=== PATIENT | female | born 1970 | race Caucasian/White ===

== ENCOUNTER 2020-08-27 09:46 | Inpatient (IN) | payer OTHER ==
--- NOTE | 2020-08-27 09:49 | PDOC ---
History of Present Illness - General Chief Complaint: Pain Stated Complaint: ABD PAIN Time Seen by Provider: 08/27/20 09:48 History Source: Patient Exam Limitations: No Limitations - History of Present Illness Initial Comments: 08/27/20 09:49 HPI 50 YOF with no significant medical history presenting with progressively worsening RLQ abdominal pain since last night. Pt states that starting last night she had diffuse abdominal pain, that has since migrated to RLQ today, described as crampy and achy, rated 6/10, no exacerbating factors. She admits to improvement with positional change, +decreased appetite. normal BM, no bloody stools. she took laxative, made 3 normal bowel movements. +passing gas. she also took one pill of Tagamet with minimal improvement. she also took aleve before bedtime last night, minimal relief. Denies fever, chills, chest pain, SOB, palpitation, dizziness, weakness, N, V, D,bladder and bowel problems, hematuria, urgency or frequency, dysuria, focal weakness/paresthesias, leg swelling/pain, rash. No sick contacts or travel. No new changes in medications. No suspicious food intake Allergies: None Past Medical History/PSH: none Social history: Lives with family. No tobacco, ETOH or drug use. Meds: none Review of systems Constitutional: no fevers or chills. No weakness. +decreased appetite HEENT: no headache or dizziness. No congestion. No visual/hearing disturbances. CVS: no cp or syncope. Resp: no sob. No cough. Gastrointestinal: no nausea, vomiting, diarrhea. +abdominal pain Genitourinary: no urinary sx, hematuria. no urgency or frequency or dysuria. MUSCULOSKELETAL: No joint pain and swelling. No neck or back pain. SKIN: no redness or skin changes, no discharge, no rash. No wounds. Hematologic: no easy bruising/bleeding. NEUROLOGIC: No headache, dizziness, LOC or altered mental status. No weakness, numbness or tingling. Psych: no anxiety or depression Allergic/Immunologic: no allergies All other systems reviewed and negative, or as documented in HPI. Physical exam General: awake and alert, NAD. HEENT: NCAT, PERRL, EOMI, clear conjunctiva, anicteric, moist mucus membranes, clear oropharynx, no oral lesions.. Neck: neck supple, FROM Resp: CTAB, normal and even respirations, no respiratory distress CVS: RRR, no murmurs, 2+ peripheral pulses throughout, no peripheral edema Abdomen: soft, +RLQ tenderness, +mcburney's point tenderness. no rebound, +voluntary guarding Back: nontender, normal inspection and ROM, no CVAT MSK: no edema, BHARDWAJ x4, ROM intact. No clubbing or cyanosis. normal bulk and tone. Extremities: no calf tenderness Neuro: alert, oriented appropriately; no focal neurologic deficits Psych: Calm and cooperative Skin: warm and well perfused, cap refill <2 sec, normal color, no rash or skin discoloration. 08/27/20 10:01 Past History - Medical History Allergies/Adverse Reactions: Allergies Allergy/AdvReac Type Severity Reaction Status Date / Time No Known Allergies Allergy Verified 08/27/20 09:47 ED Treatment Course - LABORATORY CBC & Chemistry Diagram: 08/27/20 10:20 08/27/20 10:20 Medical Decision Making - Medical Decision Making 08/27/20 10:05 DDx abdominal pain: Renal colic, biliary colic, metabolic/electrolyte derangements. GERD, PUD, esophageal spasm, pancreatitis, hepatitis, constipation, colitis, gastroenteritis, cholecystitis, UTI, pyelonephritis, ileus, SBO, medication side effect, hernia, appendicitis, diverticulitis, mesenteric ischemia. msk strain, mesenteric adenitis, psoas abscess. - no GIB +RLQ pain, concern for acute appy vs renal colic/obstructed stone. will do CT a/p to eval for acute abdominal pathology. no pelvic pain. post menopausal. 08/27/20 11:52 labs and lytes wnl. no wbc ct, 8K lytes are wnl, cr is 0.77, glucose 116, na 138, k 4.7, cl 104, co2 24, ca 9.6. A ST 22, alt 23, alp 49. reported on paper due to lab input issues preop labs, txs to be sent CT with acute uncomplicated appendicitis measuring up to 1.3cm IV ceftriaxone and flagyl for empiric coverage pain controlled with tylenol, now dull ache, much improved IVF hydration Dr Roy consult, to OR at [facility] for operative management. rapid covid testing pending Dr Pelayo, PMD made aware, admit to hospitalist for medical management, surgery following with Dr Roy, NPO, IVF, abx. s/o to [facility] Maya, admitting to Dr Francis pt made aware of impression and plan, agreeable 08/27/20 12:18 08/27/20 12:18 Discharge - Discharge Information Problems reviewed: Yes Clinical Impression/Diagnosis: Acute appendicitis Qualifiers: Acute appendicitis type: unspecified acute appendicitis type Qualified Code(s): K35.80 - Unspecified acute appendicitis Condition: Fair - Admission Yes - Follow up/Referral - Patient Discharge Instructions - Post Discharge Activity
[2020-08-27] MEDS ORDERED: SODIUM CHLORIDE 0.9% 500 ML INFUS.BAG IV ONE (09:59)
[2020-08-27] MEDS ORDERED: ACETAMINOPHEN 1000 MG/100 ML VIAL (NON FORMULARY) IVPB ONE (09:59)
[2020-08-27] MEDS ORDERED: ACETAMINOPHEN INJECTION 100 ML IVPB ONE (10:13)
[2020-08-27 11:13] LABS: BASO % 0.5 % (0-2.0); EOS % 0.3 % (0-4.5); HEMATOCRIT 40.7 % (32.4-45.2); HEMOGLOBIN 13.6 GM/dl (10.7-15.3); LYMPH % 14.1 % (8-40); MCHC 33.5 g/dl (32.0-36.0); MEAN CELL VOLUME 89.7 fl (80-96); MEAN PLT VOLUME 8.1 fl (7.5-11.1); MONO % 6.7 % (3.8-10.2); NEUT % 78.4 % (42.8-82.8); PLATELET COUNT 231 K/MM3 (134-434); RBC 4.54 M/mm3 (3.60-5.2); RDW 11.7 % (11.6-15.6); WHITE BLOOD COUNT 9.3 K/mm3 (4.0-10.8)
[2020-08-27] MEDS ORDERED: CEFTRIAXONE 1,000 MG in DEXTROSE 5%-WATER - 50 ML IVPB ONE (11:33)
[2020-08-27 12:00] LABS: ACTIVATED PTT 27.4 SECONDS (25.2-36.5); INR 1.04 (0.82-1.09); PROTHROMBIN TIME (PATIENT) 11.6 SEC (10.2-13.0)
--- NOTE | 2020-08-27 12:11 | HP ---
CHIEF COMPLAINT: Abdominal pain PCP: Dr. Pelayo HISTORY OF PRESENT ILLNESS: 50 year-old female with a PMH significant for hypothyroidism, presented to the ED for evaluation of abdominal pain. Last night patient had diffuse abdominal pain which then migrated to the RLQ today. The pain is described as crampy and achy, 6/10. Reports decreased appetite but no nausea or vomiting. Took OTC remedies (laxative, Tagamet, Aleve) with little to no relief. Denies fever, sweats, chills. 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[place], owns insurance agency Smoking: no Alcohol: occasional wine Drugs: occasional marijuana Family history: reviewed and non-contributory Allergies No Known Allergies Allergy (Verified 08/27/20 09:47) HOME MEDICATIONS: Home Medications Medication Instructions Recorded Levothyroxine [Synthroid -] 1 tab PO DAILY 08/27/20 Levothyroxine [Synthroid -] 75 mcg PO DAILY 08/27/20 REVIEW OF SYSTEMS CONSTITUTIONAL: Absent: fever, chills, diaphoresis, generalized weakness, malaise, loss of appetite, weight change HEENT: Absent: rhinorrhea, nasal congestion, throat pain, throat swelling, difficulty swallowing, mouth swelling, ear pain, eye pain, visual changes CARDIOVASCULAR: Absent: chest pain, syncope, palpitations, irregular heart rate, lightheadedness, peripheral edema RESPIRATORY: Absent: cough, shortness of breath, dyspnea with exertion, orthopnea, wheezing, stridor, hemoptysis GASTROINTESTINAL: +abdominal pain, decrease appetite Absent: abdominal distension, nausea, vomiting, diarrhea, constipation, melena, hematochezia GENITOURINARY: Absent: dysuria, frequency, urgency, hesitancy, hematuria, flank pain, genital pain MUSCULOSKELETAL: Absent: myalgia, arthralgia, joint swelling, back pain, neck pain SKIN: Absent: rash, itching, pallor HEMATOLOGIC/IMMUNOLOGIC: Absent: easy bleeding, easy bruising, lymphadenopathy, frequent infections ENDOCRINE: Absent: unexplained weight gain, unexplained weight loss, heat intolerance, cold intolerance NEUROLOGIC: Absent: headache, focal weakness or paresthesias, dizziness, unsteady gait, seizure, mental status changes, bladder or bowel incontinence PSYCHIATRIC: Absent: anxiety, depression, suicidal or homicidal ideation, hallucinations. PHYSICAL EXAMINATION Vital Signs - 24 hr 08/27/20 09:47 Temperature 99.3 F Pulse Rate 88 Respiratory 20 Rate Blood Pressure 140/87 O2 Sat by Pulse 97 Oximetry (%) GENERAL: Awake, alert, and fully oriented, in no acute distress. LUNGS: Breath sounds equal, clear to auscultation bilaterally. No wheezes, and no crackles. No accessory muscle use. HEART: Regular rate and rhythm, normal S1 and S2 ABDOMEN: Soft, RLQ tenderness UPPER EXTREMITIES: 2+ pulses, warm, well-perfused. No cyanosis. No clubbing. No peripheral edema. LOWER EXTREMITIES: 2+ pulses, warm, well-perfused. No calf tenderness. No peripheral edema. NEUROLOGICAL: Cranial nerves II-XII intact. Normal speech. Laboratory Results - last 24 hr 08/27/20 08/27/20 10:20 10:20 WBC 9.3 RBC 4.54 Hgb 13.6 Hct 40.7 MCV 89.7 MCH 30.0 MCHC 33.5 RDW 11.7 Plt Count 231 MPV 8.1 Absolute Neuts (auto) 7.4 Neutrophils % 78.4 Lymphocytes % 14.1 Monocytes % 6.7 Eosinophils % 0.3 Basophils % 0.5 PT with INR 11.6 INR 1.04 PTT (Actin FS) 27.4 ASSESSMENT/PLAN: 50 year-old female with a PMH significant for hypothyroidism, admitted for acute appendicitis. Acute appendicitis --plan is to OR this afternoon with Dr. Roy --seen and evaluated by airfield defence guard/PCP Dr. Pelayo, no absolute contraindications to surgery --perioperative antibiotics per surgery --IV Tylenol for pain Hypothyroidism --continue levothyroxine FEN Fluids: LR@125mL/hr Electrolytes: replete as indicated Nutrition: NPO DVT prophylaxis: SCDs Dipso: awaiting transfer to [facility] for emergent surgery with Dr. Roy. Full code. Family Medical History Family History: As Documented Visit type - Emergency Visit Emergency Visit: Yes Care time: The patient presented to the Emergency Department on the above date and was hospitalized for further evaluation of their emergent condition. - New Patient This patient is new to me today: Yes Date on this admission: 08/27/20 - Critical Care Critical Care patient: No
[2020-08-27 12:16] LABS: EPITHELIAL CELLS FEW /hpf; URIC ACID CRYSTALS 1+ /hpf (NONE SEEN)
[2020-08-27] MEDS ORDERED: LACTATED RINGERS SOLUTION 1,000 ML/1,000 ML INFUS.BAG IV SCH (12:30)
--- NOTE | 2020-08-27 12:33 | CON.CARD ---
Consult Consult Specialty:: Cardiology Referred by:: Carmelita Reason for Consultation:: preop evaluation - History of Present Illness Chief Complaint: abd pain History of Present Illness: 50 year old woman well known to me history of pancreatitis age 10, hypothyroidism on replacement (synthroid 75mcg daily), who presents with one day of abd pain starting last night, periumbilical without fever, chills, nausea or vomiting. Woke up 4 am with RLQ pain. Took laxative had bm without relief. Came to ER found with acute uncomplicated appendicitis on CT scan. - History Source History Provided By: Patient, Medical Record - Past Medical History Gastrointestinal: Yes: Pancreatitis ...LMP: 11/20/17 ...: No - Past Surgical History Additional Surgical History: lasik, achilles tendon - Smoking History Smoking history: Never smoked Have you smoked in the past 12 months: No Home Medications - Allergies Allergies/Adverse Reactions: Allergies Allergy/AdvReac Type Severity Reaction Status Date / Time No Known Allergies Allergy Verified 08/27/20 09:47 - Home Medications Home Medications: Ambulatory Orders Levothyroxine [Synthroid -] 1 tab PO DAILY 08/27/20 Review of Systems - Review of Systems Constitutional: reports: No Symptoms Eyes: reports: No Symptoms HENT: reports: No Symptoms Neck: reports: No Symptoms Cardiovascular: reports: No Symptoms Respiratory: reports: No Symptoms Gastrointestinal: reports: Abdominal Pain Genitourinary: reports: No Symptoms Breasts: reports: No Symptoms Reported Musculoskeletal: reports: No Symptoms Integumentary: reports: No Symptoms Neurological: reports: No Symptoms Vital Signs: Vital Signs Temperature 99.3 F 08/27/20 09:47 Pulse Rate 88 08/27/20 09:47 Respiratory Rate 20 08/27/20 09:47 Blood Pressure 140/87 08/27/20 09:47 O2 Sat by Pulse Oximetry (%) 97 08/27/20 09:47 Constitutional: Yes: No Distress, Calm Eyes: Yes: Conjunctiva Clear, EOM Intact HENT: Yes: Atraumatic, Normocephalic Neck: Yes: Supple, Trachea Midline Respiratory: Yes: CTA Bilaterally Gastrointestinal: Yes: Normal Bowel Sounds, Soft, Tenderness (RLQ), Other (guarding RLQ) Cardiovascular: Yes: Regular Rate and Rhythm JVD: No Carotid Bruit: No PMI: Non-Displaced Heart Sounds: Yes: S1, S2 Musculoskeletal: Yes: WNL Extremities: Yes: WNL Edema: No Peripheral Pulses WNL: Yes Integumentary: Yes: WNL Neurological: Yes: WNL - Other Data Labs, Other Data: CBC, BMP 08/27/20 10:20 INR, PTT INR 1.04 (0.82-1.09) 08/27/20 10:20 Imaging - Results Cat Scan: Report Reviewed (appendicitis) EKG: Report Reviewed (normal ECG) Assessment/Plan 50 year old woman well known to me history of pancreatitis age 10, hypothyroidism on replacement (synthroid 75mcg daily), who presents with one day of abd pain starting last night, periumbilical without fever, chills, nausea or vomiting. Woke up 4 am with RLQ pain. Took laxative had bm without relief. Came to ER found with acute uncomplicated appendicitis on CT scan. IMP -rapid covid testing done -pain meds, abx -surgical evaluation Dr Roy aware. -There are no cardiac contraindications to surgery. She is low risk. No further testing is needed.
[2020-08-27] MEDS ORDERED: cefTRIAXone SODIUM 1 GM VIAL ONE (12:48)
[2020-08-27] MEDS ORDERED: ACETAMINOPHEN 1000 MG/100 ML VIAL (NON FORMULARY) IVPB PRN ×2 (13:04→20:16)
[2020-08-27 13:21] LABS: ALBUMIN 4.4 g/dl (3.4-5.0); CALCIUM 9.6 mg/dl (8.5-10); CREATININE 0.8 mg/dl (0.55-1.3); POTASSIUM 4.7 mmol/L (3.5-5.1)
[2020-08-27] MEDS ORDERED: morphine CARPU-JECT 4 MG/1 ML DISP.SYRIN IVPUSH ONE (14:52)
[2020-08-27] MEDS ORDERED: ONDANSETRON 4 MG/2 ML VIAL IVPUSH ONE (15:01)
[2020-08-27] MEDS ORDERED: ONDANSETRON 4 MG/2 ML VIAL ONE (15:03)
[2020-08-27] MEDS ORDERED: morphine SULFATE 4 MG/ML VIAL ONE (15:03)
[2020-08-27] MEDS ORDERED: MIDAZOLAM HCL 2 MG/2 ML SINGLE DOSE VIAL ONE (15:52)
--- OUTSIDE RECORDS SUMMARY | 2020-08-27 16:28 | XMS ---
:1970 Author Organization [facility] Support Name Relationship Address Phone [employer]YATT Unavailable [address] [place] [phone] CAROLINA EDWARDS [address] [facility] [place] [address] UNK Unavailable Unavailable Unavailable [employer] Unavailable [address] [place] [address] KAREL EDWARDS [address] [facility] [place] [phone] Re-disclosure Warning The records that you are about to access may contain information from federally- assisted alcohol or drug abuse programs. If such information is present, then the following federally mandated warning applies: This information has been disclosed to you from records protected by federal confidentiality rules (42 CFR part 2). The federal rules prohibit you from making any further disclosure of this information unless further disclosure is expressly permitted by the written consent of the person to whom it pertains or as otherwise permitted by 42 CFR part 2. A general authorization for the release of medical or other information is NOT sufficient for this purpose. The Federal rules restrict any use of the information to criminally investigate or prosecute any alcohol or drug abuse patient.The records that you are about to access may contain highly sensitive health information, the redisclosure of which is protected by Article 27-F of the [facility] Public Health law. If you continue you may haveaccess to information: Regarding HIV / AIDS; Provided by facilities licensed or operated by the [facility] Office of Mental Health; or Provided by the [facility] Office for People With Developmental Disabilities. If such information is present, then the following [facility] mandated warning applies: This information has been disclosed to you from confidential records which are protected by state law. State law prohibits you from making any further disclosure of this information without the specific written consent of the person to whom it pertains, or as otherwise permitted by law. Any unauthorized further disclosure in violation of state law may result in a fine or prison sentence or both. A general authorization for the release of medical or other information is NOT sufficient authorization for further disclosure. Insurance Providers Payer name Policy type Policy ID Covered Covered democrat's Policy P alfonso / Coverage democrat ID relationship to [place] Inf ormation type [place] [facility] [id number] SP [id number] PLANS [facility] [id number] SP [id number] CARE HMO/POS/EPO SELF PAY SP INSURANCE [facility] [id number] PLAN HMO
--- NOTE | 2020-08-27 16:50 | CONSULT ---
- Consultation REQUESTING PROVIDER: Carmelita HORN CONSULT REQUEST: We have been asked to surgically evaluate this patient for acut e appendicitis. 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 She has some anorexia. PMHx: hypothyroid PSHx: none Home Medications Medication Instructions Recorded Levothyroxine [Synthroid -] 1 tab PO DAILY 08/27/20 Levothyroxine [Synthroid -] 75 mcg PO DAILY 08/27/20 Allergies Allergy/AdvReac Type Severity Reaction Status Date / Time No Known Allergies Allergy Verified 08/27/20 09:47 REVIEW OF SYSTEMS: CONSTITUTIONAL: Absent: fever, chills, diaphoresis, generalized weakness, malaise, loss of appetite, weight change CARDIOVASCULAR: Absent: chest pain, syncope, palpitations, irregular heart rate, lightheadedness, peripheral edema RESPIRATORY: Absent: cough, shortness of breath, dyspnea with exertion, wheezing, stridor, hemoptysis GASTROINTESTINAL: Absent: abdominal pain, abdominal distension, nausea, vomiting, diarrhea, constipation, melena, hematochezia GENITOURINARY: Absent: dysuria, frequency, urgency, hesitancy, hematuria, flank pain, genital pain MUSCULOSKELETAL: Absent: myalgia, arthralgia, joint swelling, back pain, neck pain SKIN: Absent: rash, itching, pallor HEMATOLOGIC/IMMUNOLOGIC: Absent: easy bleeding, easy bruising, lymphadenopathy NEUROLOGIC: Absent: headache, focal weakness, paresthesias, dizziness, unsteady gait, seizure, mental status changes, bladder or bowel incontinence PSYCHIATRIC: Absent: anxiety, depression, suicidal or homicidal ideation, hallucinations. PHYSICAL EXAM: GENERAL: Awake, alert, and fully oriented, in no acute distress. HEAD: Normal with no signs of trauma. EYES: PERRL, sclera anicteric, conjunctiva clear. NECK: Normal ROM, supple without lymphadenopathy, JVD, or masses. ABDOMEN: Soft, RLQ localized ttp and guarding; non distended normoactive bowel sounds, no hernias, no masses. No organomegaly. Rovsings; psoas and obturator signs are present. MUSCULOSKELETAL: Normal ROM at all joints. No bony deformities or tenderness. No CVA tenderness. UPPER EXTREMITIES: 2+ pulses, warm, well-perfused. No cyanosis. Cap refill <2 seconds. No peripheral edema. LOWER EXTREMITIES: 2+ pulses, warm, well-perfused. No calf tenderness. No peripheral edema. NEUROLOGICAL: Normal speech, gait not observed. PSYCH: Cooperative. Good eye contact. Appropriate mood and affect. SKIN: Warm, dry, normal turgor, no rashes or lesions noted. Vital Signs Temperature 99 F 08/27/20 13:48 Pulse Rate 73 08/27/20 13:48 Respiratory Rate 20 08/27/20 09:47 Blood Pressure 123/86 08/27/20 13:48 O2 Sat by Pulse Oximetry (%) 99 08/27/20 13:48 Lab Results WBC 9.3 K/mm3 (4.0-10.8) 08/27/20 10:20 RBC 4.54 M/mm3 (3.60-5.2) 08/27/20 10:20 Hgb 13.6 GM/dl (10.7-15.3) 08/27/20 10:20 Hct 40.7 % (32.4-45.2) 08/27/20 10:20 MCV 89.7 fl (80-96) 08/27/20 10:20 MCHC 33.5 g/dl (32.0-36.0) 08/27/20 10:20 RDW 11.7 % (11.6-15.6) 08/27/20 10:20 Plt Count 231 K/MM3 (134-434) 08/27/20 10:20 INR 1.04 (0.82-1.09) 08/27/20 10:20 Sodium 138 mmol/L (136-145) 08/27/20 10:20 Potassium 4.7 mmol/L (3.5-5.1) 08/27/20 10:20 Chloride 104 mmol/L (98-107) 08/27/20 10:20 Carbon Dioxide 24 mmol/L (21-32) 08/27/20 10:20 Anion Gap 10 MMOL/L (8-16) 10/08/20 10:20 BUN 18.0 mg/dl (7-18) 08/27/20 10:20 Creatinine 0.8 mg/dl (0.55-1.3) 08/27/20 10:20 Random Glucose 116 mg/dl (74-106) H 08/27/20 10:20 Calcium 9.6 mg/dl (8.5-10) 08/27/20 10:20 Blood Type A POSITIVE 08/27/20 12:30 Antibody Screen Negative 08/27/20 12:24 CT scan a/p reviewed images and reports and c/w acute appendicitis IMP: acute appendicitis PLAN: laparoscopic possible open appendectomy; r/b/t/a's d/w the patient and informed consent obtained. Juan Roy MD FACS
[2020-08-27 16:51] VITALS: BMI 25.4
[2020-08-27] MEDS ORDERED: ROCURONIUM BROMIDE 50 MG/5 ML SYRINGE ONE (17:01)
[2020-08-27] MEDS ORDERED: PROPOFOL 20 ML ONE (17:32)
[2020-08-27] MEDS ORDERED: BUPIVACAINE HCL/PF 0.5% (5 MG/ML) 30 ML VIAL IJ ONE (17:40)
[2020-08-27] MEDS ORDERED: NEOSTIGMINE METHYLSULFATE 0.5 MG/ML - 10 ML MDV ONE (17:53)
[2020-08-27] MEDS ORDERED: oxyCODONE HCL 5 MG TABLET PO PRN ×2 (18:03)
--- NOTE | 2020-08-27 18:03 | OP ---
Operative Note - Note: Operative Date: 08/27/20 Pre-Operative Diagnosis: acute appendicitis Operation: laparoscopic appendectomy Findings: acute suppurative appendicitis Post-Operative Diagnosis: Same as Pre-op Surgeon: Juan Roy Mail Caller: Loc Ayala Anesthesiologist/EMPLOYMENT PROGRAMS ANALYST: Kati Teixeira Anesthesia: General Specimens Removed: appendix
[2020-08-27] MEDS ORDERED: MEPERIDINE HCL 25 MG/ML VIAL IVPUSH ONE ×3 (18:10→18:16)
[2020-08-27] MEDS ORDERED: LACTATED RINGERS SOLUTION 1,000 ML IV SCH (18:15)
[2020-08-27] MEDS ORDERED: ONDANSETRON 4 MG/2 ML VIAL IVPUSH PRN (18:15)
[2020-08-27] MEDS ORDERED: MEPERIDINE HCL 25 MG/ML VIAL ONE (18:15)
[2020-08-28] MEDS ORDERED: LEVOTHYROXINE NA 75 MCG TABLET (FP) PO SCH ×2 (07:00)
--- NOTE | 2020-08-28 08:07 | PN ---
Progress Note (short form) - Note Progress Note: GENERAL SURGERY POD #1 s/p Lap Appy under GA Alert. C/o mild incisional tenderness. Adequate pain control w/ meds ordered. OOB and ambulating to bathroom, voiding spontaneoulsy. Passing flatus. Tolerating clears. Denies n/v/f/c, CP, palpitaions, SOB or METZGER AVSS. Afebrile. Gen:nad ABD: all surgical ports c/d/i. No hematoma LE: soft. supple. nt. SCDs bilat A/P: POD #1 s/p Lap Appy Regular diet Cont oob and ambulating Incentive spirometer Cleared for discharge home today f/u w/ Dr. Roy as outlined in DC PLAN On behalf of Dr. Roy, thank you for the opportunity to participate in your patient's care. Problem List - Problems (2) Acute appendicitis Code(s): K35.80 - UNSPECIFIED ACUTE APPENDICITIS Qualifiers: Acute appendicitis type: unspecified acute appendicitis type Qualified Code(s): K35.80 - Unspecified acute appendicitis
[2020-08-28] MEDS ORDERED: ACETAMINOPHEN 325 MG TABLET (FP) PO PRN (08:51)
[2020-08-28 09:12] LABS: BASO % 0.3 % (0-2.0); HEMATOCRIT 36.7 % (32.4-45.2); HEMOGLOBIN 12.5 GM/dL (10.7-15.3); LYMPH % 14.5 % (8-40); MCH 29.9 pg (25.7-33.7); MCHC 34.1 g/dl (32.0-36.0); MEAN CELL VOLUME 87.9 fl (80-96); MEAN PLT VOLUME 7.8 fl (7.5-11.1); MONO % 5.8 % (3.8-10.2); NEUT % 79.4 % (42.8-82.8); PLATELET COUNT 238 K/MM3 (134-434); RBC 4.18 M/mm3 (3.60-5.2); RDW 12.9 % (11.6-15.6); WHITE BLOOD COUNT 9.3 K/mm3 (4.0-10.0)
--- NOTE | 2020-08-28 09:42 | PN ---
Progress Note, Physician Chief Complaint: no complaints tolerating solid food. minimal pain History of Present Illness: 50 year old woman well known to me history of pancreatitis age 10, hypothyroidism on replacement (synthroid 75mcg daily), who presents with one day of abd pain starting last night, periumbilical without fever, chills, nausea or vomiting. Woke up 4 am with RLQ pain. Took laxative had bm without relief. Came to ER found with acute uncomplicated appendicitis on CT scan. - Current Medication List Current Medications: Active Medications Acetaminophen (Tylenol -) 650 mg PO Q6H PRN PRN Reason: HEADACHE Fentanyl (Sublimaze Injection -) 50 mcg IVPUSH [id number] PRN PRN Reason: PAIN-PACU ORDER X 4 DOSES ONLY Lactated Ringer's (Lactated Ringers Solution) 1,000 mls @ 75 mls/hr IV ASDIR [facility] Last Admin: 08/27/20 20:16 Dose: 75 mls/hr Documented by: Influenza Virus Vaccine (Flulaval Quad Syr) 60 mcg IM .ONCE ONE Stop: 08/28/20 08:16 Levothyroxine Sodium (Synthroid -) 75 mcg PO DAILY@0700 [facility] Last Admin: 08/28/20 06:24 Dose: 75 mcg Documented by: Ondansetron HCl (Zofran Injection) 4 mg IVPUSH Q6H PRN PRN Reason: NAUSEA AND/OR VOMITING Oxycodone HCl (Roxicodone -) 5 mg PO Q4H PRN PRN Reason: PAIN LEVEL 1-5 Oxycodone HCl (Roxicodone -) 10 mg PO Q4H PRN PRN Reason: PAIN LEVEL 6-10 - Objective Vital Signs: Vital Signs Temperature 97.7 F 08/28/20 04:46 Pulse Rate 77 08/28/20 04:46 Respiratory Rate 18 08/28/20 04:46 Blood Pressure 110/64 08/28/20 04:46 O2 Sat by Pulse Oximetry (%) 96 08/28/20 04:46 Constitutional: Yes: No Distress, Calm Eyes: Yes: Conjunctiva Clear, EOM Intact HENT: Yes: Atraumatic, Normocephalic Neck: Yes: Supple, Trachea Midline Respiratory: Yes: CTA Bilaterally Gastrointestinal: Yes: Normal Bowel Sounds, Soft, Other (incicison c/d/i) Musculoskeletal: Yes: WNL Extremities: Yes: WNL Labs: CBC, BMP 08/28/20 08:10 INR, PTT INR 1.04 (0.82-1.09) 08/27/20 10:20 Assessment/Plan 50 year old woman well known to me history of pancreatitis age 10, hypothyroidism on replacement (synthroid 75mcg daily), who presents with one day of abd pain starting last night, periumbilical without fever, chills, nausea or vomiting. Woke up 4 am with RLQ pain. Took laxative had bm without relief. Came to ER found with acute uncomplicated appendicitis on CT scan. IMP -rapid covid testing negative -Dr Roy's eval and surgical treatment appreciated. -dc home, pain meds -outpatient fu.
[2020-08-28 09:44] LABS: ALBUMIN 3.8 g/dl (3.4-5.0); BILIRUBIN,TOTAL 0.9 mg/dL (0.2-1); BLOOD UREA NITROGEN 9.6 mg/dL (7-18); CALCIUM 9.1 mg/dL (8.5-10.1); CREATININE 0.8 mg/dL (0.55-1.3); MAGNESIUM 2.2 mg/dL (1.8-2.4); TOT PROT 6.7 g/dl (6.4-8.2)
--- NOTE | 2020-08-28 10:07 | EKG ---
Test Reason : Blood Pressure : / mmHG Vent. Rate : 071 BPM Atrial Rate : 071 BPM P-R Int : 160 ms QRS Dur : 078 ms QT Int : 392 ms P-R-T Axes : 063 012 012 degrees QTc Int : 425 ms NORMAL SINUS RHYTHM NORMAL ECG NO PREVIOUS ECGS AVAILABLE Confirmed by MAYA DOSS MD ([id number]) on 08/28/2020 10:06:51 AM Referred By: STEPHANIE KIDD Confirmed By:MAYA DOSS MD
[2020-08-28 10:13] VITALS: BP 112/74; PULSE 79; TEMP 99.1
[2020-08-28] MEDS ORDERED: FLU VACCINE (FLULAVAL) PF 60 MCG/0.5 ML SYRINGE 2020-2021 IM ONE (12:00)
--- NOTE | 2020-08-28 12:14 | DS ---
Physical Exam: SUBJECTIVE: Patient seen and examined at bedside, reports she feels well, able to tolerate diet. Wishes to go home today. No new complaints, mild pain at surgical site. OBJECTIVE: Vital Signs Period Temp Pulse Resp BP Sys/Nevarez Pulse Ox Last 24 Hr 97.4 F-99.1 F 65-89 15-18 104-123/55-86 92-99 PHYSICAL EXAM GENERAL: Awake, alert, and fully oriented, in no acute distress. LUNGS: Breath sounds equal, clear to auscultation bilaterally. No wheezes, and no crackles. No accessory muscle use. HEART: Regular rate and rhythm, normal S1 and S2 ABDOMEN: Soft, s/p Lap appey, intact surgical ports, no bleeding/discharge UPPER EXTREMITIES: 2+ pulses, warm, well-perfused. No cyanosis. No clubbing. No peripheral edema. LOWER EXTREMITIES: 2+ pulses, warm, well-perfused. No calf tenderness. No peripheral edema. NEUROLOGICAL: Cranial nerves II-XII intact. Normal speech. LABS Laboratory Results - last 24 hr 08/27/20 08/27/20 08/27/20 10:03 10:20 12:20 WBC RBC Hgb Hct MCV MCH MCHC RDW Plt Count MPV Absolute Neuts (auto) Neutrophils % Lymphocytes % Monocytes % Eosinophils % Basophils % Nucleated RBC % Sodium 138 Potassium 4.7 Chloride 104 Carbon Dioxide 24 Anion Gap 10 BUN 18.0 Creatinine 0.8 Est GFR (CKD-EPI)AfAm 98.24 Est GFR (CKD-EPI)NonAf 84.76 Random Glucose 116 H Calcium 9.6 Magnesium Total Bilirubin 1.0 AST 22 ALT 23 Alkaline Phosphatase 49 Total Protein 7.0 Albumin 4.4 Lipase 116 Urine Color Yellow Urine Appearance Clear Urine pH 5.0 Urine Protein Negative Urine Glucose (UA) Negative Urine Ketones Negative Urine Blood Negative Urine Nitrite Negative Urine Bilirubin Negative Urine Urobilinogen 0.2 Ur Leukocyte Esterase 1+ Urine RBC 0-2 Urine WBC 2-5 Ur Transition Epith Cell Few Uric Acid Crystals 1+ Urine Bacteria Rare SARS-CoV-2 (PCR) Blood Type Cancelled Antibody Screen Cancelled 08/27/20 08/27/20 08/27/20 12:20 12:24 12:30 WBC RBC Hgb Hct MCV MCH MCHC RDW Plt Count MPV Absolute Neuts (auto) Neutrophils % Lymphocytes % Monocytes % Eosinophils % Basophils % Nucleated RBC % Sodium Potassium Chloride Carbon Dioxide Anion Gap BUN Creatinine Est GFR (CKD-EPI)AfAm Est GFR (CKD-EPI)NonAf Random Glucose Calcium Magnesium Total Bilirubin AST ALT Alkaline Phosphatase Total Protein Albumin Lipase Urine Color Urine Appearance Urine pH Urine Protein Urine Glucose (UA) Urine Ketones Urine Blood Urine Nitrite Urine Bilirubin Urine Urobilinogen Ur Leukocyte Esterase Urine RBC Urine WBC Ur Transition Epith Cell Uric Acid Crystals Urine Bacteria SARS-CoV-2 (PCR) Negative Blood Type A POSITIVE A POSITIVE Antibody Screen Negative 08/28/20 08/28/20 08:10 08:10 WBC 9.3 RBC 4.18 Hgb 12.5 Hct 36.7 MCV 87.9 MCH 29.9 MCHC 34.1 RDW 12.9 Plt Count 238 MPV 7.8 Absolute Neuts (auto) 7.4 Neutrophils % 79.4 Lymphocytes % 14.5 Monocytes % 5.8 Eosinophils % 0.0 Basophils % 0.3 Nucleated RBC % 0 Sodium 141 Potassium 4.0 Chloride 104 Carbon Dioxide 32 Anion Gap 5 L BUN 9.6 Creatinine 0.8 Est GFR (CKD-EPI)AfAm 98.24 Est GFR (CKD-EPI)NonAf 84.76 Random Glucose 102 Calcium 9.1 Magnesium 2.2 Total Bilirubin 0.9 AST 13 L ALT 22 Alkaline Phosphatase 55 Total Protein 6.7 Albumin 3.8 Lipase Urine Color Urine Appearance Urine pH Urine Protein Urine Glucose (UA) Urine Ketones Urine Blood Urine Nitrite Urine Bilirubin Urine Urobilinogen Ur Leukocyte Esterase Urine RBC Urine WBC Ur Transition Epith Cell Uric Acid Crystals Urine Bacteria SARS-CoV-2 (PCR) Blood Type Antibody Screen HOSPITAL COURSE: Date of Admission:08/27/20 50 Y F with a PMH of pancreatitis, hypothyroidism (synthroid 75mcg daily), presented to [facility] with one day of abd/periumbilical pain that radiated down to RLQ without fever, chills, nausea or vomiting. CT abdomen revealed acute uncomplicated appendicitis, transferred to [facility] for Lap Appy with Dr. Roy. s/p Lap Appy POD #1. Tolerated the procedure well. Afebrile and hemodynamically stable. mild incisional tenderness. Patient is able to get out of bed and OOB and ambulate to bathroom. Able to void and pass gas. Diet advanced from clears to regular. Patient is medically and surgically stable for discharge, and discharged her with the following instructions and referrals. Date of Discharge: 08/28/20 Minutes to complete discharge: 36 Discharge Summary Problems reviewed: Yes Reason For Visit: ABD PAIN Condition: Improved - Instructions Diet, Activity, Other Instructions: YOUR VISIT You came to the hospital because you were experiencing abdominal pain. You were admitted for care of appendicitis. While here, you had your appendix removed. You are now stable and may return home MEDICATIONS Please continue taking your home medications as prescribed. You have no new home medications. ADDITIONAL CARE Please make an appointment with your primary care provider 1 week from today to discuss your hospitalization. If you would like to continue seeing Dr. More, you can schedule a Monday morning appointment by calling . The office is located at [address] [place] [address]. Please make an appointment to see your surgeon, Dr. Roy, 1 week from today to discuss further surgical care. If you experience any worsening of the symptoms that brought you to the hospital, unusual headache, vision changes, chest pain, unusual bleeding, shortness of breath or any other alarming symptoms, please go directly to the emergency room. Dr. Roy Discharge Instructions Dear REG EDWARDS, Post Operative Instructions Physical activity Resume your normal everyday activity as tolerated no heavy lifting or exercise until seen by your surgeon. You may walk unlimited amounts of and climb stairs. You may resume driving the car when you feel safe and comfortable behind the wheel. Wound care You have a liquid bandage over your incisions. This will come off slowly on its own over the next few weeks. Please avoid picking at it if you notice it flaking. You may shower starting tomorrow. When showering allow soap and water to run over the incision. Do not scrub, pat dry after showering. Diet There are no dietary restrictions. Eat healthy, high-fiber foods. Drink 6 to 8 glasses of liquid each day. This will assist in keeping your bowels are regular. Pain management You may take Tylenol or acetaminophen or Ibuprofen (for example, Motrin, Advil etc.) Any pain prescription medication ordered should be taken as prescribed for moderate to severe pain. Call Dr. Roy for any of the following: Severe pain not relieved by medication Fever of 101 or higher Excessive bleeding or drainage on dressing Inability to urinate Call the office at [phone] for a post operative appointment in 7 - 10 days. Referrals: Juan Roy MD [Staff Physician] - 1 Week Bogdan Pelayo MD [Staff Physician] - 1 Week Disposition: HOME - Home Medications Comprehensive Discharge Medication List: Ambulatory Orders Levothyroxine [Synthroid -] 75 mcg PO DAILY 08/27/20 This patient is new to me today: No Emergency Visit: Yes ED Registration Date: 08/27/20 Care time: The patient presented to the Emergency Department on the above date and was hospitalized for further evaluation of their emergent condition. Critical Care patient: No - Discharge Referral Referred to [facility] No ATTENDING PHYSICIAN STATEMENT I saw and evaluated the patient. I reviewed the resident's note and discussed the case with the resident. I agree with the resident's findings and plan as documented. SUBJECTIVE: OBJECTIVE: ASSESSMENT AND PLAN:
--- NOTE | 2020-08-28 13:51 | OP ---
DATE OF OPERATION: 08/27/2020 PREOPERATIVE DIAGNOSIS: Acute appendicitis. POSTOPERATIVE DIAGNOSIS: Acute appendicitis. PROCEDURE: Laparoscopic appendectomy. SURGEON: Juan Roy MD. UNIVERSITY DEMONSTRATOR: Loc Ayala PA-C. ANESTHESIA: General. OPERATIVE FINDINGS: Acute suppurative appendicitis. The rest of the findings were unremarkable. PROCEDURE: The patient was placed on the operating room table in the supine position, and after induction of general anesthesia and placement of a Ward catheter, the patient's abdomen was prepped with ChloraPrep and draped in sterile fashion. A timeout was taken, and pneumoperitoneum established at the umbilicus, using a Veress needle to an intraabdominal pressure of 15 mmHg. Next, a 12-mm suprapubic port just to the left of the midline was placed without incident, and then a left lower quadrant 5-mm port. The patient was placed in the head-down position and rotated to the left and laparoscopy carried out and previously noted findings were observed. The appendix was grasped and using blunt dissection and the LigaSure device mobilized from the lateral abdominal wall. The mesoappendix was serially divided using the LigaSure device as well. Once the base of the appendix was identified at the confluence of the 3 tenia on the cecum, a 60-mm Endo RONNIE purple load stapler was placed across the base of the appendix and fired. The appendix was then placed in an EndoCatch and brought up to the abdominal wall at the 12-mm port site. The suture line was inspected for hemostasis and/or leak, and there was found to be none. The appendix was then removed with the 12-mm port, and sent the pathological examination. The 12-mm port was replaced and pneumoperitoneum reestablished, and hemostasis checked for and noted to be good. At this point, the two 5-mm ports and the 12-mm port were removed, and the pneumoperitoneum evacuated. The defect at the suprapubic port site was closed with a single [id number] 0 Vicryl suture, and the port sites were injected with 0.5% Marcaine. The skin edges were reapproximated with interrupted 4-0 Biosyn followed by Steri-Strips and Band-Aid dressings. The patient was then aroused from anesthesia and prior to this the Ward catheter removed, and the patient transferred to post anesthesia care unit in stable condition awake and alert. Estimated blood loss: 10 mL Replacements: crystalloid, Drains: none Specimen: appendix to pathology. I, Juan Roy, was physically present in the operating room from the time the patient was placed on the operating room table until she was transferred to the postanesthesia care unit in my accompaniment. MD RUBEN Diaz/[id number] MTDD
--- NOTE | 2020-08-28 16:07 | PN ---
Teaching Attending Note Name of Resident: Carmine More ATTENDING PHYSICIAN STATEMENT I saw and evaluated the patient. I reviewed the resident's note and discussed the case with the resident. I agree with the resident's findings and plan as documented. SUBJECTIVE: Patient is feeling better , wants to go home. OBJECTIVE: Vital Signs Temperature 99.1 F 08/28/20 09:00 Pulse Rate 79 08/28/20 09:00 Respiratory Rate 18 08/28/20 09:00 Blood Pressure 112/74 08/28/20 09:00 O2 Sat by Pulse Oximetry (%) 94 L 08/28/20 10:00 PE: PER RESIDENT'S NOTE no abdominal pain CBCD WBC 9.3 K/mm3 (4.0-10.0) 08/28/20 08:10 RBC 4.18 M/mm3 (3.60-5.2) 08/28/20 08:10 Hgb 12.5 GM/dL (10.7-15.3) 08/28/20 08:10 Hct 36.7 % (32.4-45.2) 08/28/20 08:10 MCV 87.9 fl (80-96) 08/28/20 08:10 MCHC 34.1 g/dl (32.0-36.0) 08/28/20 08:10 RDW 12.9 % (11.6-15.6) 08/28/20 08:10 Plt Count 238 K/MM3 (134-434) 08/28/20 08:10 MPV 7.8 fl (7.5-11.1) 08/28/20 08:10 CMP Sodium 141 mmol/L (136-145) 08/28/20 08:10 Potassium 4.0 mmol/L (3.5-5.1) 08/28/20 08:10 Chloride 104 mmol/L (98-107) 08/28/20 08:10 Carbon Dioxide 32 mmol/L (21-32) 08/28/20 08:10 Anion Gap 5 MMOL/L (8-16) L 08/28/20 08:10 BUN 9.6 mg/dL (7-18) 08/28/20 08:10 Creatinine 0.8 mg/dL (0.55-1.3) 08/28/20 08:10 Random Glucose 102 mg/dL (74-106) 08/28/20 08:10 Calcium 9.1 mg/dL (8.5-10.1) 08/28/20 08:10 Total Bilirubin 0.9 mg/dL (0.2-1) 08/28/20 08:10 AST 13 U/L (15-37) L 08/28/20 08:10 ALT 22 U/L (13-61) 08/28/20 08:10 Alkaline Phosphatase 55 U/L (45-117) 08/28/20 08:10 Total Protein 6.7 g/dl (6.4-8.2) 08/28/20 08:10 Albumin 3.8 g/dl (3.4-5.0) 08/28/20 08:10 Home Medications Medication Instructions Recorded Levothyroxine [Synthroid -] 75 mcg PO DAILY 08/27/20 CT Scan: uncomplicated appendicitis ASSESSMENT AND PLAN: This patient is a 50yof with Pmhx of pancreatitis age 10, hypothyroidism who presents RLQ pain and was admitted for acute appendicitis. #POD#1 s/p lap. appendectomy surgeon Dr Roy #rapid covid testing negative dc patient home , outpatient fu ut th Dr Roy within a week f/u with the primary within a week
--- NOTE | 2020-09-03 09:11 | PATH ---
Surgical Pathology Report Patient Name: REG EDWARDS [facility]. Rec. #: [id number] /Age/Gender: 1970 (Age: 50) / F Account: [id number] Location: [address] [place] [address]/[facility] Taken: 08/27/2020 Received: 08/28/2020 Reported: 09/03/2020 Physicians: MD Kenan Garcia M.D. Specimen(s) Received APPENDIX Clinical History Appendicitis Final Diagnosis APPENDIX, LAPAROSCOPIC APPENDECTOMY: NEUROENDOCRINE TUMOR, WELL-DIFFERENTIATED (CARCINOID/G1). NEOPLASM MEASURES 3 MM IN GREATEST MICROSCOPIC DIMENSION. NEOPLASM PRESENT AT APPENDICEAL TIP (DISTAL HALF). TUMOR INVADES THE MUSCULARIS PROPRIA. MITOSIS: <2 MITOSIS/2MM2. NO LYMPHOVASCULAR OR PERINEURAL INVASION IDENTIFIED. SURGICAL MARGINS ARE NEGATIVE (PROXIMAL AND RADIAL). ACUTE APPENDICITIS AND PERIAPPENDICITIS. SEE COMMENT. AJCC STAGING (pTNM, 8TH EDITION):pT1 pNx. Comment: At the appendiceal tip, nests of bland neoplastic cells with granular chromatin are identified infiltrating into the muscularis propria. No mitosis is identified (<2 mitosis/2 mm2). Immunohistochemical stains performed and interpreted at [facility] show the tumor is positive for chromogranin and synaptophysin; while negative for CK7 and CK20. [facility] [place] ([id number]) and interpreted at [facility] show the neoplasm shows weak positive staining for CD56. Proliferative marker, Ki-67 is <3%. Case seen in intradepartmental review with consensus on diagnosis. Findings discussed with Dr. Roy, 09/02/20. Positive and negative controls (internal if applicable) show appropriate results. Comments Appendix Neuroendocrine Tumor Surgical pathology Case Summary AJCC STAGING (pTNM, 8th Edition) Procedure _X_ Appendectomy Tumor Site _X_ Distal half of appendix Tumor Size Greatest dimension (centimeters): 3 mm Histologic Type and Grade _X_ G1: Well-differentiated neuroendocrine tumor Mitotic Rate _X_ <2 mitoses/2mm2 Ki-67 Labeling Index _X_ <3% Tumor Extension _X_ Tumor invades the muscularis propria Margins _X__ All margins are uninvolved by tumor Margins examined: proximal, radial Lymphovascular Invasion _X_ Not identified Perineural Invasion _X_ Not identified Regional Lymph Nodes _X__ No lymph nodes submitted or found Pathologic Stage Classification (pTNM, AJCC 8th Edition) Primary Tumor (pT) _X__ pT1: Tumor 2 cm or less in greatest dimension Regional Lymph Nodes (pN) _X_ pNX: Regional lymph nodes cannot be assessed Additional Pathologic Findings _X__ Acute appendicitis Electronically Signed Mikayla Velázquez M.D. Gross Description Received in formalin, labeled "appendix," is a 4.5 cm. in length vermiform appendix with a stapled margin of resection and abundant attached fat. The serosa is calderón with attached exudate. Sectioning reveals a dilated lumen containing pus. The wall of the appendix averages 0.1 cm. in thickness. Insurance Sales Supervisor sections including bisected distal tip and 2 technical sales representatives cross sections are submitted in cassette 1. The remainder of the specimen is entirely submitted as follows: 2-shave of staple line (margin of resection); 6-5-lplbpuff submitted remainder of specimen from proximal to distal. 08/28/2020 [facility]08/28/2020
--- NOTE | 2020-09-09 16:41 | SURG ---
Surgery Network Operations Analyst Note Network Operations Analyst: Loc Ayala PA-C Date of Service: 08/27/20 Diagnosis: acute appendicitis Procedure: laparoscopic appendectomy I was present for the entirety of the operative procedure. For further detail, please refer to operative report. Visit type - Case Type Case Type: ED Admission - Emergency Emergency Visit: Yes ED Registration Date: 08/27/20 Care time: The patient presented to the Emergency Department on the above date and was hospitalized for further evaluation of their emergent condition. - New patient This patient is new to me today: No - Critical Care Critical Care patient: No
== END 2020-08-28 12:37 | disposition home or self-care (01) | DRG 343 ==
LOC: FER 09:46 → J6S 16:23
PROVIDERS: ADMIT Internal Medicine; ATTEND Internal Medicine
PROC: 0DTJ4ZZ Resection of Appendix, Percutaneous Endoscopic Approach (ICD-10-PCS; principal; 2020-08-27 12:00)
DX: K35.80 Unspecified acute appendicitis (principal); E03.9 Hypothyroidism, unspecified; Z20.828 Contact with and (suspected) exposure to other viral communicable diseases
CPT/HCPCS: 36415; 71045-TC-FY; 74177-TC; 80053; 81003; 81015; 83690; 83735; 85025; 85610; 85730; 86850; 86900; 86901; 87086; 88307-TC; 88341-TC; 93005; 94760; 99285-25; C9803; J0131; Q2036; Q9967; U0003